=== PATIENT | male | born 1950 | race Caucasian/White ===

== ENCOUNTER 2019-02-28 02:41 | Emergency (ER) | payer MEDICARE ==
[2019-02-28] MEDS ORDERED: Sodium Chloride 0.9% 1,000 ML IV ONE (03:06)
[2019-02-28] MEDS ORDERED: Sodium Chloride 0.9% 2.5 ML Syringe FLUSH PRN (03:06)
[2019-02-28] MEDS ORDERED: methylPREDNISolone Sodium Succinate 125 MG/2 ML SDV IVPUSH ONE (03:06)
[2019-02-28] MEDS ORDERED: Albuterol/Ipratropium 3.0-0.5 MG/3 ML Neb Soln NEB ONE (03:06)
[2019-02-28] MEDS ORDERED: Sodium Chloride 0.9% 10 ML Syringe FLUSH PRN (03:06)
--- NOTE | 2019-02-28 03:10 | EDM.PDOC ---
ED HPI GENERAL MEDICAL PROBLEM - General Chief Complaint: Respiratory Problem Stated Complaint: CHEST COLD, CHEST PAIN Time Seen by Provider: 02/28/19 02:59 - History of Present Illness INITIAL COMMENTS - FREE TEXT/NARRATIVE: HISTORY AND PHYSICAL: History of present illness: The patient is a 61-year-old male with a history of asthma hypercholesterolemia and hypertension who has used inhalers as a rescue for many years and never smokes cigarettes and presents with complaints of chest congestion spastic cough and vague chest pain. The patient was seen in our clinic on February 12 of February 15 and 2 days ago on February 25 and had chest x-rays on the latter 2 visits which were within normal limits. On one of the first visits he was given nebulizer treatments and steroids and he was only given cough medicine on this last visit. He is confused and concerned because his symptoms have not improved over the last several weeks but he has not had a fever nausea vomiting abdominal pain leg pain or swelling. The patient does have a history of 2 cardiac stents in the past one done at [facility] and one done in [place] but they have not been done recently. He has not had chest pain like his heart pain and it appears that he feels like he can't get any phlegm up and that when he starts coughing or takes a deep breath he feels some discomfort and cannot catch his breath. He is not having chest pain without coughing or having work of breathing. The patient has never had any recent pulmonary function tests and says he has not done a nebulizer treatment in the last 2 days because he was running out and he wanted to save them for when it was really bad. He has not had steroids with this last clinic visit. The patient tells me the only inhaler he has is the albuterol rescue and he is not on any maintenance therapy or inhaled steroids Review of systems: As per history of present illness and below otherwise all systems reviewed and negative. Past medical history: As per history of present illness and as reviewed below otherwise noncontributory. Surgical history: As per history of present illness and as reviewed below otherwise noncontributory. Social history: No reported history of drug or alcohol abuse. Family history: As per history of present illness and as reviewed below otherwise noncontributory. Physical exam: General: Well-developed well-nourished man who is mildly overweight and nontoxic and speaking clearly in the ED. If he tries to take a deep breath he starts to have a spastic cough. Breathless HEENT: Atraumatic, normocephalic, pupils reactive, negative for conjunctival pallor or scleral icterus, mucous membranes moist, throat clear, neck supple, nontender, trachea midline. Lungs: Diminished breath sounds throughout all kwan right and left with coarse breath sounds and no discrete wheezing or stridor but air exchange is tight and there is no work of breathing, breath sounds equal bilaterally, chest nontender. Heart: S1S2, regular rate and rhythm but no overt murmurs Abdomen: Soft, nondistended, nontender. Negative for masses or hepatosplenomegaly. Negative for costovertebral tenderness. Pelvis: Stable nontender. Genitourinary: Deferred. Rectal: Deferred. Extremities: Atraumatic, negative for cords or calf pain. Neurovascular unremarkable. No pedal edema or leg asymmetry Neuro: Awake, alert, oriented. Cranial nerves II through XII unremarkable. Cerebellum unremarkable. Motor and sensory unremarkable throughout. Exam nonfocal. Diagnostics: EKG chest x-ray CBC CMP troponin lactic acid influenza Therapeutics: IV O2 monitor IV fluids aspirin duo neb Solu-Medrol After the treatment as above the patient is feeling much improved in saying that he can take deep breaths and not triggering much of the cough he had when I initially saw him. He still has diminished air exchange throughout but he says he is feeling much better. I discussed with him at length the need to follow-up due to the right lower lobe lung nodule as well as the need to possibly see a petroleum geology faculty member and/or have pulmonary function tests. At this point I will send him home with the DuoNeb medication for his nebulizer machine and a steroid taper. He has medications for cough or ready. I stressed to him the need to call the clinic on Friday morning and schedule a follow-up and get referrals or the testing that he needs to do to get on some maintenance therapy and to get his pulmonary disease under better control. He states understanding Impression: Dyspnea, asthma exacerbation Definitive disposition and diagnosis as appropriate pending reevaluation and review of above. Generalized Pain Score (Numeric/FACES): 6 - Related Data Allergies Allergy/AdvReac Type Severity Reaction Status Date / Time Pollens Molds Allergy Shortness Uncoded 02/28/19 03:00 of Breath Home Meds: Home Meds Allopurinol [Zyloprim] 300 mg PO DAILY 01/19/14 [History] Aspirin [Halfprin] 81 mg PO DAILY 01/19/14 [History] Fish Oil/[place]-3 Fatty Acids [Fish Oil 1,000 MG] 2,000 mg PO BID 01/19/14 [ History] Losartan Potassium 50 mg PO BRK 01/19/14 [History] Metoprolol Succinate 50 mg PO BRK 01/19/14 [History] Rosuvastatin [Crestor] 40 mg PO BEDTIME 01/19/14 [History] Sertraline [Zoloft] 100 mg PO DAILY 01/19/14 [History] Albuterol [Ventolin HFA] 2 puff INH Q4H PRN 02/02/16 [History] Fluticasone/Salmeterol [Advair Diskus 100-50] 1 inh NASBOTH BID PRN 02/02/16 [ History] Nitroglycerin [Nitrostat] 1 tab SL ASDIRECTED PRN 02/02/16 [History] Acetaminophen [Tylenol Extra Strength] 1,000 mg PO BID PRN 12/15/18 [History] Budesonide/Formoterol Fumarate [Symbicort 160-4.5 Mcg Inhaler] 2 puff INH BID [History] Cyanocobalamin (Vitamin B12) [Vitamin B12] 100 mcg PO BID 12/15/18 [History] Ubqh 100 mg PO BID 12/15/18 [History] Albuterol Sulfate 3 ml INH ASDIRECTED 02/28/19 [History] Benzonatate 200 mg PO TID 02/28/19 [History] Past Medical History HEENT History: Reports: Allergic Rhinitis Other HEENT History: Hard of hearing bilaterally Cardiovascular History: Reports: CAD, High Cholesterol, Hypertension, SD (6-7 years ago), Stents (x2, first one 6-7 years ago, second one 2 years ago) Respiratory History: Reports: Asthma Other Respiratory History: asthma mostly triggered by allergies (dust, pollen and mold) Gastrointestinal History: Reports: GERD Other Gastrointestinal History: hx: Colon polyps Genitourinary History: Reports: Prostate Disorder Other Genitourinary History: hx of prostate cancer- had radiation Musculoskeletal History: Reports: Back Pain, Chronic Neurological History: Reports: CVA Other Neuro History: states had "slight stroke" because of missing blood pressure medications Psychiatric History: Reports: Anxiety, Depression Endocrine/Metabolic History: Reports: Obesity/BMI 30+ Oncologic (Cancer) History: Reports: Prostate - Infectious Disease History Infectious Disease History: Reports: Chicken Pox, Measles, Mumps, Shingles - Past Surgical History Head Surgeries/Procedures: Reports: None HEENT Surgical History: Reports: Adenoidectomy, Naso-Sinus Surgery, Tonsillectomy, Visual Other HEENT Surgeries/Procedures: hx of fx nose, hx of "metal" being removed from left eye Cardiovascular Surgical History: Reports: Coronary Artery Stent Other Cardiovascular Surgeries/Procedures: hx of SD - angioplasty with 2 stents placed, denies current chest pain and SOB GI Surgical History: Reports: Colonoscopy (2013) Neurological Surgical History: Reports: Discectomy, Lumbar Spine, Other (See Below) Other Neurological Surgeries/Procedures: lumbar microdiscectomy and removal of osteophyte Musculoskeletal Surgical History: Reports: Knee Replacement (right) Social & Family History - Family History Family Medical History: Noncontributory - Caffeine Use Caffeine Use: Reports: Soda Caffeine Use Comment: 2-3 week ED ROS GENERAL - Review of Systems Review Of Systems: ROS reveals no pertinent complaints other than HPI. ED EXAM, GENERAL - Physical Exam Exam: See Below (See dictation) Course - Vital Signs Last Recorded V/S: Last Vital Signs Temp 36.3 C 02/28/19 03:02 Pulse 63 02/28/19 03:02 Resp 20 02/28/19 03:02 BP 166/65 H 02/28/19 03:08 Pulse Ox 93 L 02/28/19 03:15 - Orders/Labs/Meds Orders: Active Orders 24 hr Category Date Time Status Cardiac Monitoring [RC] . DIRECTED Care 02/28/19 03:06 Active EKG Documentation Completion [RC] STAT Care 02/28/19 03:06 Active Oxygen Therapy, ED [RC] ASDIRECTED Care 02/28/19 03:06 Active Pulse Oximetry [RC] ASDIRECTED Care 02/28/19 03:06 Active RT Aerosol Therapy [RC] ASDIRECTED Care 02/28/19 03:06 Active Sodium Chloride 0.9% [Saline Flush] Med 02/28/19 03:06 Active 10 ml FLUSH ASDIRECTED PRN Sodium Chloride 0.9% [Saline Flush] Med 02/28/19 03:06 Active 2.5 ml FLUSH ASDIRECTED PRN Saline Lock Insert [OM.PC] Stat Oth 02/28/19 03:06 Ordered Medication Orders Sodium Chloride (Saline Flush) 10 ml FLUSH ASDIRECTED PRN PRN Reason: Keep Vein Open Last Admin: 02/28/19 04:00 Dose: 10 ml Sodium Chloride (Saline Flush) 2.5 ml FLUSH ASDIRECTED PRN PRN Reason: Keep Vein Open Last Admin: 02/28/19 04:00 Dose: 2.5 ml Labs: Laboratory Tests 02/28/19 02/28/19 02/28/19 Range/Units 03:15 03:15 03:15 WBC 10.96 (4.0-11.0) K/uL RBC 4.14 L (4.50-5.90) M/uL Hgb 12.8 L (13.0-17.0) g/dL Hct 38.4 (38.0-50.0) % MCV 92.8 (80.0-98.0) fL MCH 30.9 (27.0-32.0) pg MCHC 33.3 (31.0-37.0) g/dL RDW Std Deviation 49.1 (28.0-62.0) fl RDW Coeff of [place] 15 (11.0-15.0) % Plt Count 206 (150-400) K/uL MPV 9.80 (7.40-12.00) fL Neut % (Auto) 68.1 (48.0-80.0) % Lymph % (Auto) 21.4 (16.0-40.0) % [place] % (Auto) 9.8 (0.0-15.0) % Eos % (Auto) 0.5 (0.0-7.0) % Baso % (Auto) 0.2 (0.0-1.5) % Neut # (Auto) 7.5 H (1.4-5.7) K/uL Lymph # (Auto) 2.4 (0.6-2.4) K/uL [place] # (Auto) 1.1 H (0.0-0.8) K/uL Eos # (Auto) 0.1 (0.0-0.7) K/uL Baso # (Auto) 0.0 (0.0-0.1) K/uL Nucleated RBC % 0.0 /100WBC Nucleated RBCs # 0 K/uL Lactate 1.1 (0.20-2.00) mmol/L Sodium 143 (136-148) mmol/L Potassium 3.8 (3.5-5.1) mmol/L Chloride 109 H (98-107) mmol/L Carbon Dioxide 24.4 (21.0-32.0) mmol/L BUN 35 H (7.0-18.0) mg/dL Creatinine 1.2 (0.8-1.3) mg/dL Est Cr Clr Drug Dosing 64.67 mL/min Estimated GFR (MDRD) > 60.0 ml/min Glucose 103 (74-106) mg/dL Calcium 8.5 (8.5-10.1) mg/dL Total Bilirubin 0.2 (0.2-1.0) mg/dL AST 31 (15-37) IU/L ALT 46 (14-63) IU/L Alkaline Phosphatase 73 (46-116) U/L Troponin I 0.050 (0.000-0.056) ng/mL Total Protein 6.5 (6.4-8.2) g/dL Albumin 3.5 (3.4-5.0) g/dL Globulin 3.0 (2.6-4.0) g/dL Albumin/Globulin Ratio 1.2 (0.9-1.6) Meds: Medications Generic Name Dose Route Start Last Admin Trade Name Freq PRN Reason Stop Dose Admin Sodium Chloride 10 ml 02/28/19 03:06 02/28/19 04:00 Saline Flush FLUSH 10 ml ASDIRECTED PRN Administration Keep Vein Open Sodium Chloride 2.5 ml 02/28/19 03:06 02/28/19 04:00 Saline Flush FLUSH 2.5 ml ASDIRECTED PRN Administration Keep Vein Open Discontinued Medications Generic Name Dose Route Start Last Admin Trade Name Freq PRN Reason Stop Dose Admin Albuterol/Ipratropium 3 ml 02/28/19 03:06 02/28/19 04:01 Duoneb 3.0-0.5 Mg/3 Ml NEB 02/28/19 03:07 3 ml ONETIME ONE Administration Aspirin 324 mg 02/28/19 03:11 02/28/19 04:01 Aspirin PO 02/28/19 03:12 324 mg ONETIME ONE Administration Sodium Chloride 1,000 mls @ 999 mls/hr 02/28/19 03:06 02/28/19 03:59 Normal Saline IV 02/28/19 04:06 999 mls/hr STAT ONE Administration Iopamidol 100 ml 02/28/19 04:16 02/28/19 04:41 Isovue-370 (76%) IVPUSH 02/28/19 04:17 100 ml ONETIME ONE Administration Methylprednisolone Sodium Succinate 125 mg 02/28/19 03:06 02/28/19 03:59 Solu-Medrol IVPUSH 02/28/19 03:07 125 mg ONETIME ONE Administration Departure - Departure Time of Disposition: 05:21 Disposition: Home, Self-Care 01 Condition: Good Clinical Impression: Dyspnea and respiratory abnormalities Exacerbation of asthma Qualifiers: Asthma severity: mild Asthma persistence: unspecified Qualified Code(s): J45.901 - Unspecified asthma with (acute) exacerbation - Discharge Information Referrals: PCP,None [Primary Care Provider] - Forms: ED Department Discharge Additional Instructions: The following information is given to patients seen in the emergency department who are being discharged to home. This information is to outline your options for follow-up care. We provide all patients seen in our emergency department with a follow-up referral. The need for follow-up, as well as the timing and circumstances, are variable depending upon the specifics of your emergency department visit. If you don't have a primary care physician on staff, we will provide you with a referral. We always advise you to contact your personal physician following an emergency department visit to inform them of the circumstance of the visit and for follow-up with them and/or the need for any referrals to a consulting specialist. The emergency department will also refer you to a specialist when appropriate. This referral assures that you have the opportunity for followup care with a specialist. All of these measure are taken in an effort to provide you with optimal care, which includes your followup. Under all circumstances we always encourage you to contact your private physician who remains a resource for coordinating your care. When calling for followup care, please make the office aware that this follow-up is from your recent emergency room visit. If for any reason you are refused follow-up, please contact the [facility] emergency department at and ask to speak to the emergency department charge nurse. MARCIANO [facility] Primary care- Internal Medicine and Family [place] [id number] [place] [id number] Please call the clinic on Friday and schedule a follow-up appointment discussing with them today's events and the ER visit of this evening including the CAT scan. You need to discuss with them maintenance therapy for your asthma disease as well as possible referral to pulmonology and possible pulmonary function test. Please discuss with them your concerns about repeated clinic visits and now this ER visit and the waxing and waning of your asthma symptoms. Filled the prescription yet been given this morning and start those medications later this afternoon. Push more hydration rest and avoid people with cough and other people with illnesses. Return to ER as needed and as discussed. - My Orders Last 24 Hours: My Active Orders 02/28/19 03:06 Cardiac Monitoring [RC] . DIRECTED EKG Documentation Completion [RC] STAT Oxygen Therapy, ED [RC] ASDIRECTED Pulse Oximetry [RC] ASDIRECTED RT Aerosol Therapy [RC] ASDIRECTED Sodium Chloride 0.9% [Saline Flush] 10 ml FLUSH ASDIRECTED PRN Sodium Chloride 0.9% [Saline Flush] 2.5 ml FLUSH ASDIRECTED PRN Saline Lock Insert [OM.PC] Stat - Assessment/Plan Last 24 Hours: My Active Orders 02/28/19 03:06 Cardiac Monitoring [RC] . DIRECTED EKG Documentation Completion [RC] STAT Oxygen Therapy, ED [RC] ASDIRECTED Pulse Oximetry [RC] ASDIRECTED RT Aerosol Therapy [RC] ASDIRECTED Sodium Chloride 0.9% [Saline Flush] 10 ml FLUSH ASDIRECTED PRN Sodium Chloride 0.9% [Saline Flush] 2.5 ml FLUSH ASDIRECTED PRN Saline Lock Insert [OM.PC] Stat
[2019-02-28] MEDS ORDERED: Aspirin 81 MG Tab.Chew PO ONE (03:11)
[2019-02-28 03:52] LABS: BLOOD UREA NITROGEN,BUN 35 mg/dL (7.0-18.0); CARBON DIOXIDE,CO2 24.4 mmol/L (21.0-32.0); CHLORIDE,CL 109 mmol/L (98-107); GLUCOSE RANDOM 103 mg/dL (74-106); POTASSIUM,K 3.8 mmol/L (3.5-5.1); SODIUM,NA 143 mmol/L (136-148)
--- NOTE | 2019-02-28 04:10 | CR ---
INDICATION: Shortness of breath TECHNIQUE: Two view chest. Comparison chest x-ray 02/25/2019. FINDINGS: The lungs are clear. The heart, mediastinum and pulmonary vessels are of normal size. There is no evidence of pleural disease. Calcified hilar lymph nodes. Scattered tiny punctate densities probably reflects small granulomas. This is without change. IMPRESSION: No acute pulmonary process. Dictated by Ekaterina Morel MD @ Feb 28 2019 4:07AM Signed by Dr. Ekaterina Morel @ Feb 28 2019 4:09AM
[2019-02-28] MEDS ORDERED: Iopamidol 755 Mg/ML 100 ML Bottle IVPUSH ONE (04:16)
--- NOTE | 2019-02-28 05:02 | CT ---
INDICATION: Chest pain, shortness of breath COMPARISON: Chest two views 03/02/2019 TECHNIQUE: Contrast enhanced axial CT imaging through the chest, optimized for assessment of the pulmonary arterial tree. 100 mL Isovue 370 contrast agent was administered intravenously. Sagittal and coronal reconstructions are provided. FINDINGS: There is adequate opacification of the pulmonary arterial tree without evidence of thromboembolism. There is normal caliber of the main pulmonary artery and thoracic aorta. The heart is normal in size. There is no pericardial effusion. There is atherosclerotic calcification of the coronary arteries. There is no mediastinal lymphadenopathy. A 10 mm pulmonary nodule is noted in the right lower lobe. There is mild bibasilar atelectasis. The lungs are otherwise clear. There is no pleural effusion or pneumothorax. The thoracic osseous structures are unremarkable. No significant abnormality is demonstrated in the visualized upper abdomen. IMPRESSION: 1. No evidence of pulmonary thromboembolism or other acute intrathoracic process. 2. Coronary artery disease. 3. Incidental 10 mm right lower lobe pulmonary nodule. Follow-up nonenhanced chest CT is recommended in 3 months to assess stability. Please note that all CT scans at this facility use dose modulation, iterative reconstruction, and/or weight-based dosing when appropriate to reduce radiation dose to as low as reasonably achievable. Dictated by Stew Morocho MD @ Feb 28 2019 4:55AM Signed by Dr. Stew Morocho @ Feb 28 2019 5:01AM
[2019-02-28 06:06] VITALS: BP 136/76; PULSE 58
== END 2019-02-28 05:46 | disposition home or self-care (01) ==
LOC: MW.ED 02:41
DX: J45.901 Unspecified asthma with (acute) exacerbation (principal); I10 Essential (primary) hypertension; I25.10 Atherosclerotic heart disease of native coronary artery without angina pectoris; Z95.5 Presence of coronary angioplasty implant and graft; Z86.73 Personal history of transient ischemic attack (TIA), and cerebral infarction without residual deficits; E66.9 Obesity, unspecified; F41.9 Anxiety disorder, unspecified; F32.9 Major depressive disorder, single episode, unspecified; Z88.8 Allergy status to other drugs, medicaments and biological substances; Z79.82 Long term (current) use of aspirin; Z79.899 Other long term (current) drug therapy
CPT/HCPCS: 36415; 71046; 71275; 80053; 83605; 84484; 85025; 87804; 93005; 96361; 96374; 99285; A9270; J2930; J7040; Q9967; J7620-GY

== ENCOUNTER 2021-01-16 07:46 | Emergency (ER) | payer MEDICARE ==
[2021-01-16] MEDS ORDERED: Sodium Chloride 0.9% 10 ML Syringe FLUSH PRN (08:31)
[2021-01-16] MEDS ORDERED: Sodium Chloride 0.9% 2.5 ML Syringe FLUSH PRN (08:31)
--- NOTE | 2021-01-16 08:42 | PCM.EKG ---
#1 Interpretation EKG Date: 01/16/21 Time: 08:35 Rhythm: NSR Rate (Beats/Min): 66 [place]: Normal P-Wave: Present QRS: Normal ST-T: Normal QT: Normal Comparison: No Change (02/28/19) EKG Interpretation Comments: SInus Rhythm
--- NOTE | 2021-01-16 08:59 | CR ---
Indication: Chest tightness Comparison: Two-view chest February 28, 2019 Technique: Single AP view chest Findings: There is hyperinflation and chronic interstitial change. There is no focal consolidation, effusion, or pneumothorax. The cardiac silhouette is mildly prominent. The bony thorax is grossly intact. Impression: There is mild hyperinflation and chronic interstitial change without dense consolidation. Dictated by Paco Gallegos MD @ 01/16/2021 8:58:34 AM (Electronically Signed)
[2021-01-16 09:22] LABS: BLOOD UREA NITROGEN,BUN 19 mg/dL (7.0-18.0); CARBON DIOXIDE,CO2 27.2 mmol/L (21.0-32.0); CHLORIDE,CL 105 mmol/L (98-107); GLUCOSE RANDOM 111 mg/dL (74-106); POTASSIUM,K 4.1 mmol/L (3.5-5.1); SODIUM,NA 140 mmol/L (136-148)
[2021-01-16] MEDS ORDERED: Acetaminophen 500 MG Tab PO ONE (09:28)
--- NOTE | 2021-01-16 09:29 | EDM.PDOC ---
ED HPI GENERAL MEDICAL PROBLEM - General Chief Complaint: Abdominal Pain Stated Complaint: ABDOMINAL PAIN, HEADACHE Time Seen by Provider: 01/16/21 08:08 - History of Present Illness INITIAL COMMENTS - FREE TEXT/NARRATIVE: CHIEF COMPLAINT(S): Not feeling right HISTORY OF PRESENT ILLNESS: This is a 70-year-old man with a past medical history of CAD, hypertension, prior prostate cancer who comes to the emergency department with a chief complaint of not feeling right. The patient states that he has been experiencing fatigue and anorexia and developed a headache which is bifrontal not associated with any blurry vision, numbness, tingling, or weakness. He states that this headache also happened when he last had his heart attack. He currently denies any chest pain or shortness of breath but he just does not feel right. He states that he took 2 nitroglycerin and one aspirin and laid down for a couple of hours however that did not help his symptoms. He denies any aggravating or relieving factors for his headache. He rates his headache as 4-5 out of 10. He states that the pain in his head was not maximal in onset. He denies any nausea or vomiting. He denies any abdominal pain but states that his stomach just does not feel right. He denies any recent travel, recent surgery or prior history of DVT or PE. REVIEW OF SYSTEMS: Constitutional: Positive for fatigue. Denies fever, chills. Eyes: Denies eye pain Ears, Nose, Mouth, & Throat: Denies earache Cardiovascular: Denies chest pain Respiratory: Denies shortness of breath Gastrointestinal: Positive for anorexia denies Nausea, vomiting, diarrhea, hem atochezia. Genitourinary: Denies hematuria Skin:Denies a rash MSK: Denies joint pain Neurological: Positive for headache. Denies blurred vision, numbness, tingling, weakness Psychiatric: Denies depression PAST MEDICAL HISTORY: As per history of present illness and as reviewed below otherwise noncontributory. SURGICAL HISTORY: As per history of present illness and as reviewed below otherwise noncontributory. SOCIAL HISTORY: As per history of present illness and as reviewed below otherwise noncontributory. FAMILY HISTORY: As per history of present illness and as reviewed below otherwise noncontributory. EXAMINATION OF ORGAN SYSTEMS/BODY AREAS: Constitutional: Blood pressure is 139/75, heart rate 64, respiratory rate 16 with an oxygen saturation of 92% on room air. Temperature 36.1 General: Elderly man who does not appear to be in acute distress Psychiatric: Appropriate mood and affect. Eyes: No scleral icterus or conjunctival erythema pupils were equal round and reactive to light. Extraocular movements intact. No vertical horizontal nystagmus. ENMT: Moist mucous membranes. No pharyngeal erythema Cardiovascular: Regular, rate, and rhythm. No gallops, murmurs, or rubs. B ilateral upper extremity pulses symmetric and intact. No peripheral edema. No JVD. Respiratory: Lungs clear to auscultation bilaterally. No wheezes, rales, or rhonchi. Gastrointestinal: Soft, non-tender, non-distended. Normoactive bowel sounds Genitourinary: No suprapubic tenderness Musculoskeletal: Normal range of motion. Skin: No lesions or abrasions. Neurological: Alert, GCS 15 strength and sensation grossly intact in upper and lower extremities bilaterally. Gait appears normal. MEDICAL DECISION MAKING AND COURSE IN THE ED WITH INTERPRETATION/REVIEW OF DIAGNOSTIC STUDIES: This is a 70-year-old with a past medical history of CAD, prior history of Covid approximately 1 year ago who is currently fully vaccinated against COVID-19 who comes to the emergency department with vague c omplaints without any discernible pattern. At this time given his history of CAD will undergo a cardiac work-up. EKG was obtained which did not reveal any acute signs of ischemia. Given his hypoxia will obtain a D-dimer to evaluate for possible need for CT angiogram for pulmonary embolism. Will obtain a carbon monoxide level as the patient is having similar symptoms to carbon monoxide poisoning. We will provide the patient with Tylenol for headache relief and provide him with 1 L of lactated Ringer's bolus. Will obtain CBC, CMP, troponin, magnesium, COVID-19 swab and a chest x-ray. Laboratory: CBC is unremarkable. D-dimer is elevated at 0.60. Carboxyhemoglobin is 1.2. CMP reveals elevated BUN at 19, hyperglycemia at 111, [id number] glucose is 100, hypocalcemia at 8.3. Otherwise unremarkable. Troponin is negative. Covid is negative. The radiological images were viewed by myself along with reading the report from the radiologist. Chest x-ray reveals mild hyperinflation and chronic interstitial changes without dense consolidation. After labs I did discuss that I would like to obtain a CT angiogram of the chest. He was amenable to this plan. This time his pain had improved and his vitals continue to remain stable. The radiological images were viewed by myself along with reading the report from the radiologist. CT angiogram of the chest does not reveal any evidence of acute pulmonary embolism. There is mild diffuse bronchial wall thickening and dependent atelectasis bilaterally. He does have a irregular nodule similar to prior exam. After imaging I did discuss results with the patient. I discussed with him at the time that there is evidence of bronchitis. I discussed that in addition to this he has a pulmonary nodule. He states that he knows about this nodule. I did discuss strict return precautions. He has an appointment with his sound installation worker in [place] within a few days. At this time I encouraged him to keep this appointment. He is to return for any new or worsening symptoms. He was amenable to discharge and had no further questions. DISPOSITION: The patient was discharged home in stable condition. The patient will follow up with his sound installation worker at his scheduled appointment CONDITION: Fair PROCEDURES: None FINAL IMPRESSION(S)/DIAGNOSES: 1. Acute headache Connor Maldonado M.D. headache Pain Score (Numeric/FACES): 6 - Related Data Allergies Allergy/AdvReac Type Severity Reaction Status Date / Time Pollens Molds Allergy Shortness Uncoded 01/16/21 08:12 of Breath Home Meds: Home Meds Aspirin [Halfprin] 81 mg PO DAILY 01/19/14 [History] Fish Oil/[place]-3 Fatty Acids [Fish Oil 1,000 MG] 2,000 mg PO BID 01/19/14 [History] Metoprolol Succinate 50 mg PO BRK 01/19/14 [History] Rosuvastatin [Crestor] 40 mg PO BEDTIME 01/19/14 [History] Sertraline [Zoloft] 100 mg PO DAILY 01/19/14 [History] allopurinoL [Zyloprim] 300 mg PO DAILY 01/19/14 [History] Albuterol [Ventolin HFA] 2 puff INH Q4H PRN 02/02/16 [History] Nitroglycerin [Nitrostat] 1 tab SL ASDIRECTED PRN 02/02/16 [History] Acetaminophen [Tylenol Extra Strength] 1,000 mg PO BID PRN 12/15/18 [History] Cyanocobalamin (Vitamin B12) [Vitamin B12] 100 mcg PO BID 12/15/18 [History] Albuterol Sulfate [Albuterol Sulfate HFA] 8.5 gm INH Q4H #1 ea 01/16/21 [Rx] Budesonide/Formoterol Fumarate [Symbicort 160-4.5 Mcg Inhaler] 6 gm IH BID #1 hfa.aer.ad 01/16/21 [Rx] Past Medical History HEENT History: Reports: Allergic Rhinitis Other HEENT History: Hard of hearing bilaterally Cardiovascular History: Reports: CAD, High Cholesterol, Hypertension, VT, Stents Respiratory History: Reports: Asthma Other Respiratory History: asthma mostly triggered by allergies (dust, pollen and mold) Gastrointestinal History: Reports: GERD Other Gastrointestinal History: hx: Colon polyps Genitourinary History: Reports: Prostate Disorder Other Genitourinary History: hx of prostate cancer- had radiation Musculoskeletal History: Reports: Back Pain, Chronic Neurological History: Reports: CVA Other Neuro History: states had "slight stroke" because of missing blood pressure medications Psychiatric History: Reports: Anxiety, Depression Endocrine/Metabolic History: Reports: Obesity/BMI 30+ Hematologic History: Reports: None Immunologic History: Reports: None Oncologic (Cancer) History: Reports: Prostate Dermatologic History: Reports: None - Infectious Disease History Infectious Disease History: Reports: Chicken Pox, Measles, Mumps, Shingles - Past Surgical History Head Surgeries/Procedures: Reports: None HEENT Surgical History: Reports: Adenoidectomy, Naso-Sinus Surgery, Tonsillectomy, Visual Other HEENT Surgeries/Procedures: hx of fx nose, hx of "metal" being removed from left eye Cardiovascular Surgical History: Reports: Coronary Artery Stent Other Cardiovascular Surgeries/Procedures: hx of VT - angioplasty with 2 stents placed, denies current chest pain and SOB GI Surgical History: Reports: Colonoscopy Male Surgical History: Reports: Other (See Below) Other Male Surgeries/Procedures: prostate radiation; prostate cancer Neurological Surgical History: Reports: Discectomy, Lumbar Spine, Other (See Below) Other Neurological Surgeries/Procedures: lumbar microdiscectomy and removal of osteophyte Musculoskeletal Surgical History: Reports: Knee Replacement Other Musculoskeletal Surgeries/Procedures:: Laser Back surgery after injury with herniated disc 1 year ago CYRIL Eckert Oncologic Surgical History: Reports: None Social & Family History - Family History Family Medical History: No Pertinent Family History - Tobacco Use Tobacco Use Status *Q: Never Tobacco User - Caffeine Use Caffeine Use: Reports: Coffee, Soda Caffeine Use Comment: 2-3 week - Recreational Drug Use Recreational Drug Use: No ED ROS GENERAL - Review of Systems Review Of Systems: See Below ED EXAM, GENERAL - Physical Exam Exam: See Below Course - Vital Signs Last Recorded V/S: Last Vital Signs Temp 35.9 C L 01/16/21 12:21 Pulse 61 01/16/21 12:21 Resp 18 01/16/21 12:21 BP 138/76 01/16/21 12:21 Pulse Ox 95 01/16/21 12:21 - Orders/Labs/Meds Labs: Laboratory Tests 01/16/21 01/16/21 01/16/21 Range/Units 08:05 08:10 08:45 WBC 8.86 (4.0-11.0) K/uL RBC 4.44 L (4.50-5.90) M/uL Hgb 13.7 (13.0-17.0) g/dL Hct 40.4 (38.0-50.0) % MCV 91.0 (80.0-98.0) fL MCH 30.9 (27.0-32.0) pg MCHC 33.9 (31.0-37.0) g/dL RDW Std Deviation 44.8 (28.0-62.0) fl RDW Coeff of Verito 13 (11.0-15.0) % Plt Count 161 (150-400) K/uL MPV 10.00 (7.40-12.00) fL Neut % (Auto) 83.4 H (48.0-80.0) % Lymph % (Auto) 6.4 L (16.0-40.0) % [place] % (Auto) 6.9 (0.0-15.0) % Eos % (Auto) 3.3 (0.0-7.0) % Baso % (Auto) 0.0 (0.0-1.5) % Neut # (Auto) 7.4 H (1.4-5.7) K/uL Lymph # (Auto) 0.6 (0.6-2.4) K/uL [place] # (Auto) 0.6 (0.0-0.8) K/uL Eos # (Auto) 0.3 (0.0-0.7) K/uL Baso # (Auto) 0.0 (0.0-0.1) K/uL Nucleated RBC % 0.0 /100WBC Nucleated RBCs # 0 K/uL D-Dimer, Quantitative (0.0-0.50) mg/L FEU ABG Carboxyhemoglobin (0-15) % Sodium (136-148) mmol/L Potassium (3.5-5.1) mmol/L Chloride (98-107) mmol/L Carbon Dioxide (21.0-32.0) mmol/L BUN (7.0-18.0) mg/dL Creatinine (0.8-1.3) mg/dL Est Cr Clr Drug Dosing mL/min Estimated GFR (MDRD) ml/min Glucose (74-106) mg/dL POC Glucose 100 H (70-99) mg/dL Calcium (8.5-10.1) mg/dL Magnesium (1.8-2.4) mg/dL Total Bilirubin (0.2-1.0) mg/dL AST (15-37) IU/L ALT (14-63) IU/L Alkaline Phosphatase (46-116) U/L Troponin I (0.000-0.056) ng/mL Total Protein (6.4-8.2) g/dL Albumin (3.4-5.0) g/dL Globulin (2.6-4.0) g/dL Albumin/Globulin Ratio (0.9-1.6) SARS-CoV-2 RNA (MINNIE) NEGATIVE (NEGATIVE) 01/16/21 01/16/21 01/16/21 Range/Units 08:45 08:45 08:45 WBC (4.0-11.0) K/uL RBC (4.50-5.90) M/uL Hgb (13.0-17.0) g/dL Hct (38.0-50.0) % MCV (80.0-98.0) fL MCH (27.0-32.0) pg MCHC (31.0-37.0) g/dL RDW Std Deviation (28.0-62.0) fl RDW Coeff of Verito (11.0-15.0) % Plt Count (150-400) K/uL MPV (7.40-12.00) fL Neut % (Auto) (48.0-80.0) % Lymph % (Auto) (16.0-40.0) % [place] % (Auto) (0.0-15.0) % Eos % (Auto) (0.0-7.0) % Baso % (Auto) (0.0-1.5) % Neut # (Auto) (1.4-5.7) K/uL Lymph # (Auto) (0.6-2.4) K/uL [place] # (Auto) (0.0-0.8) K/uL Eos # (Auto) (0.0-0.7) K/uL Baso # (Auto) (0.0-0.1) K/uL Nucleated RBC % /100WBC Nucleated RBCs # K/uL D-Dimer, Quantitative 0.60 H (0.0-0.50) mg/L FEU ABG Carboxyhemoglobin 1.2 (0-15) % Sodium 140 (136-148) mmol/L Potassium 4.1 (3.5-5.1) mmol/L Chloride 105 (98-107) mmol/L Carbon Dioxide 27.2 (21.0-32.0) mmol/L BUN 19 H (7.0-18.0) mg/dL Creatinine 1.1 (0.8-1.3) mg/dL Est Cr Clr Drug Dosing 69.57 mL/min Estimated GFR (MDRD) > 60.0 ml/min Glucose 111 H (74-106) mg/dL POC Glucose (70-99) mg/dL Calcium 8.3 L (8.5-10.1) mg/dL Magnesium 2.0 (1.8-2.4) mg/dL Total Bilirubin 0.5 (0.2-1.0) mg/dL AST 30 (15-37) IU/L ALT 50 (14-63) IU/L Alkaline Phosphatase 79 (46-116) U/L Troponin I < 0.050 (0.000-0.056) ng/mL Total Protein 6.8 (6.4-8.2) g/dL Albumin 3.7 (3.4-5.0) g/dL Globulin 3.1 (2.6-4.0) g/dL Albumin/Globulin Ratio 1.2 (0.9-1.6) SARS-CoV-2 RNA (MINNIE) (NEGATIVE) Meds: Medications Discontinued Medications Generic Name Dose Route Start Last Admin Trade Name Dustin PRN Reason Stop Dose Admin Acetaminophen 1,000 mg 01/16/21 09:28 01/16/21 09:35 Acetaminophen 500 Mg Tab PO 01/16/21 09:29 1,000 mg ONETIME ONE Administration Lactated Ringer's 1,000 mls @ 999 mls/hr 01/16/21 09:30 01/16/21 09:31 Ringers, Lactated IV 999 mls/hr ASDIRECTED NIGEL Administration Iopamidol 100 ml 01/16/21 11:11 01/16/21 11:11 Iopamidol 755 Mg/Ml 500 Ml Multipack Bottle IVPUSH 01/16/21 11:12 100 ml ONETIME STA Administration Sodium Chloride 10 ml 01/16/21 08:31 01/16/21 08:48 Sodium Chloride 0.9% 10 Ml Syringe FLUSH 10 ml ASDIRECTED PRN Administration Keep Vein Open Sodium Chloride 2.5 ml 01/16/21 08:31 01/16/21 08:48 Sodium Chloride 0.9% 2.5 Ml Syringe FLUSH 2.5 ml ASDIRECTED PRN Administration Keep Vein Open Departure - Departure Time of Disposition: 12:11 Disposition: Home, Self-Care 01 Condition: Fair Clinical Impression: Abdominal pain, Headache, Bronchitis - Discharge Information *PRESCRIPTION DRUG MONITORING PROGRAM REVIEWED*: No *COPY OF PRESCRIPTION DRUG MONITORING REPORT IN PATIENT CLYDE: No Prescriptions: Albuterol Sulfate [Albuterol Sulfate HFA] 8.5 gm INH Q4H #1 ea Budesonide/Formoterol Fumarate [Symbicort 160-4.5 Mcg Inhaler] 6 gm IH BID #1 hfa.aer.ad Instructions: Abdominal Pain, Adult, General Headache Without Cause, Acute Bronchitis, Adult, [id number] Referrals: PCP,None [Primary Care Provider] - Forms: ED Department Discharge Additional Instructions: You were evaluated today on an emergent basis. At this time I do believe that your headache is likely exacerbated by the nitroglycerin that you had taken. Given that is resolved with fluids and time this is reassuring. In addition all of your labs are within normal limits and we did evaluate you for a clot in your lung which was not apparent. As discussed you do have a pulmonary nodule which is known. I do recommend that you follow-up with your primary care physician for this. In addition you did have some bronchial wall thickening suggesting bronchitis. I did prescribe your home medication of albuterol and Symbicort. Please use as prescribed. If you have any worsening symptoms I had like you to return to the emergency department otherwise I would like you to keep your appointment with your sound installation worker in [place] on January 19 as we discussed. [facility] [address] [place] [id number] [id number] The patient is informed of any results of their evaluation and diagnostic workup and all questions are answered. They are given discharge instructions and return precautions. The patient is stable for discharge. The patient states they understand and agree with the plan and that they will return if their symptoms get worse or if they have any new concerns. The following information is given to patients seen in the emergency department who are being discharged to home. This information is to outline your options for follow-up care. We provide all patients seen in our emergency department with a follow-up referral. The need for follow-up, as well as the timing and circumstances, are variable depending upon the specifics of your emergency department visit. If you don't have a primary care physician on staff, we will provide you with a referral. We always advise you to contact your personal physician following an emergency department visit to inform them of the circumstance of the visit and for follow-up with them and/or the need for any referrals to a consulting specialist. The emergency department will also refer you to a specialist when appropriate. This referral assures that you have the opportunity for follow-up care with a specialist. All of these measure are taken in an effort to provide you with optimal care, which includes your follow-up. Under all circumstances we always encourage you to contact your private physician who remains a resource for coordinating your care. When calling for follow-up care, please make the office aware that this follow-up is from your recent emergency room visit. If for any reason you are refused follow-up, please contact the [facility] Emergency Department at and asked to speak to the emergency department charge nurse. Sepsis Event Note (ED) - Evaluation Sepsis Screening Result: No Definite Risk
[2021-01-16] MEDS ORDERED: Lactated Ringers 1,000 ML IV SCH (09:30)
[2021-01-16] MEDS ORDERED: Iopamidol 755 MG/ML 500 ML Multipack Bottle IVPUSH STA (11:11)
--- NOTE | 2021-01-16 11:28 | CT ---
INDICATION: Chest pain, low oxygen saturation, evaluate for pulmonary embolus TECHNIQUE: CT chest pulmonary angiogram acquired with IV contrast. Approximately 100 cc of Isovue 370 contrast was administered intravenously. Multiplanar/MIP reformats were created. COMPARISON: CT chest 08/27/[address] angio 02/28/2019 FINDINGS: The heart is normal in size. There is no bowing of the interventricular septum. There is mild atherosclerotic calcification of the coronary arteries and aortic arch. No suspicious mediastinal, hilar or axillary adenopathy. The main pulmonary artery is normal in caliber. No filling defects seen within the pulmonary arteries to suggest a pulmonary embolus. Linear artifact is present within the left lower lobe pulmonary artery as well as segmental and subsegmental branches supplying the left lower lobe. Artifact also limits evaluation of the subsegmental branches within the right lower lobe. Mild diffuse bronchial wall thickening. Dependent atelectasis bilaterally. Irregular nodule within the medial right lower lobe measuring 1.0 x 0.8 x 1.1 cm (series 402, image 104), similar to prior exam from February 2019. Negative for pleural effusion or pneumothorax. The bones and upper abdomen are unremarkable. IMPRESSION: 1. Negative for pulmonary embolus, however evaluation of the distal segmental and subsegmental branches within the lower lobes is limited due to artifact. 2. Stable irregular nodule in the medial right lower lobe, measuring 1.1 cm 3. Mild diffuse bronchial wall thickening. Please note that all CT scans at this facility use dose modulation, iterative reconstruction, and/or weight-based dosing when appropriate to reduce radiation dose to as low as reasonably achievable. Dictated by Mamta Quintanilla MD @ 01/16/2021 11:25:59 AM (Electronically Signed)
[2021-01-16 12:22] VITALS: BP 138/76; PULSE 61
== END 2021-01-16 12:25 | disposition home or self-care (01) ==
LOC: MW.ED 07:46
DX: R51.9 Headache, unspecified (principal); R10.9 Unspecified abdominal pain; J40 Bronchitis, not specified as acute or chronic; I25.10 Atherosclerotic heart disease of native coronary artery without angina pectoris; E78.00 Pure hypercholesterolemia, unspecified; I10 Essential (primary) hypertension; E66.9 Obesity, unspecified; I25.2 Old myocardial infarction; Z68.32 Body mass index [BMI] 32.0-32.9, adult; Z91.09 Other allergy status, other than to drugs and biological substances; Z79.82 Long term (current) use of aspirin; Z86.73 Personal history of transient ischemic attack (TIA), and cerebral infarction without residual deficits; Z79.899 Other long term (current) drug therapy; Z20.822 Contact with and (suspected) exposure to COVID-19
CPT/HCPCS: 71045; 71275; 80053; 82375; 82947; 83735; 84484; 85025; 85379; 93005; 99284; A9270; J7120; Q9967; U0002